=== PATIENT | male | born 1970 | race Caucasian/White ===

== ENCOUNTER → 2021-01-06 | Outpatient (CLI) | payer BC | LOC: LABNPT 09:31 | PROVIDERS: ATTEND Family Medicine | DX: U07.1 COVID-19 (principal) | CPT/HCPCS: 87635 ==

== ENCOUNTER 2022-05-24 18:52 | Emergency (ER) | payer OTHER ==
[~2022-05-24] VITALS: Ht 180.3 cm; Wt 95.3 kg
--- NOTE | 2022-05-24 19:11 | ED Abdominal Pain ---
General Chief Complaint: Foreign Body Stated Complaint: STOMACH PAIN History of Present Illness Date Seen by Provider: May 24, 2022 Time Seen by Provider: 19:05 Initial Comments 51-year-old male presents for abdominal discomfort. He reports earlier tonight he was eating salmon and rice when he felt that the food was stuck and he had trouble swallowing. No vomiting or belching. Since then he has been able to handle saliva, he has not tried eating or drinking anything. After the rice passed, he had epigastric pain. He has similar episodes, when eating fast or larger bites, approximately every 1-2 months. He had an EGD in 2007, has not required medical care for this problem since. No colonoscopy. Pain has improved, since the initial symptoms. Timing/Duration: 1 Hour Severity/Quality: Mild Location: Epigastric Radiation: No Radiation Associated Symptoms: Denies Symptoms (LOU OLSON) Allergies and Home Medications Allergies Coded Allergies: Penicillins (Verified Allergy, Unknown, 05/24/22) Patient Home Medication List Home Medication List Reviewed: Yes (LOU OLSON) Pantoprazole Sodium (Protonix) 40 Mg Tablet., 40 MG PO DAILY Prescribed by: LOU OLSON on 05/24/221915 Review of Systems Review of Systems Constitutional: no symptoms reported, see HPI Gastrointestinal: See HPI; Denies Abdomen Distended; Abdominal Pain; Denies Diarrhea, Denies Nausea, Denies Vomiting (LOU OLSON) All Other Systems Reviewed Negative Unless Noted: Yes (LOU OLSON) Past Lyhnwpj-Iwmxmu-Cdfyka Hx Family Medical History Reviewed Nursing Family Hx (LOU OLSON) Physical Exam Vital Signs Vital Signs - First Documented 05/24/22 19:04 Temp 36.1 Pulse 85 Resp 16 B/P (MAP) 159/97 (117) Pulse Ox 98 O2 Delivery Room Air (ADRI KHAN MD) Vital Signs Capillary Refill : (LOU OLSON) Height/Weight/BMI Height: '" Weight: lbs. oz. kg; BMI Method: General Appearance: WD/WN, mild distress (anxious) Respiratory: chest non-tender, lungs clear, normal breath sounds Cardiovascular: normal peripheral pulses, regular rate, rhythm Gastrointestinal: normal bowel sounds, soft; No distended, No rebound; tenderness (trace epigastric ) Neurologic/Psychiatric: no motor/sensory deficits, alert, normal mood/affect, oriented x 3 Skin: normal color, warm/dry (LOU OLSON) Progress/Results/Core Measures Results/Orders Medications Given in ED Current Medications Medications Dose Ordered Sig/Gayle Route Start Time Stop Time Status Last Admin Dose Admin Al Hydrox/Mg Hydrox/Simethicone 30 ml ONCE ONCE PO 05/24/22 19:15 05/24/22 19:16 DC 05/24/22 19:11 30 ML Lidocaine HCl 15 ml ONCE ONCE PO 05/24/22 19:15 05/24/22 19:16 DC 05/24/22 19:11 15 ML (ADRI KHAN MD) Vital Signs/I&O 05/24/22 05/24/22 19:04 19:34 Temp 36.1 36.1 Pulse 85 87 Resp 16 16 B/P (MAP) 159/97 (117) 164/97 Pulse Ox 98 99 O2 Delivery Room Air Room Air (ADRI KHAN MD) Progress Progress Note : Time: 19:05 Progress Note Patient seen and evaluated, will give water to assure he can swallow. And then a GI cocktail and reevaluate. 1929 symptoms improved after GI cocktail, with mild residual symptoms. Discharge instructions and return precautions reviewed with the patient. All questions answered. (LOU OLSON) Departure Impression Primary Impression: Epigastric abdominal pain Additional Impression: Dysphagia Qualified Codes: R13.10 - Dysphagia, unspecified Disposition: 01 HOME, SELF-CARE Condition: Improved Departure-Patient Inst. Decision time for Depature: 19:20 (LOU OLSON) Referrals: DL NATION MD (PCP) Primary Care Physician Patient Instructions: Dysphagia (DC), Eosinophilic Esophagitis Add. Discharge Instructions: See Dr. Nation for referral to general surgeon for Colonoscopy and EGD. Take Protonix for 2 weeks. Eat small bites of food, drink water before eating and after 1-2 bites. Avoid foods that cause GI problems. Try a hard peppermint after having similar symptoms. You can spray Flonase 2 squirts in the back of your throat daily for 2 weeks, and then as needed when symptoms occur. Return to Emergency Dept for new, urgent healthcare needs. All discharge instructions reviewed with patient and/or family. Voiced unde rstanding. Scripts Pantoprazole Sodium (Protonix) 40 Mg Tablet. 40 MG PO DAILY for 14 Days, #14 TAB 0 Refills Prov: LOU OLSON 05/24/22 ATTENDING PHYSICIAN NOTE: I was physically present as attending physician in the emergency department during the care of this patient, but I was not directly involved in the decision making or delivery of care for this patient. (ADRI KHAN MD) Copy Copies To 1: DL NATION MD, AMY ARNP May 24, 2022 19:11 ADRI KHAN MD May 25, 2022 04:57
[2022-05-24] MEDS ORDERED: ANTACID SUSP 30 ML UDC (MYLANTA) PO ONE (19:15)
[2022-05-24] MEDS ORDERED: LIDOCAINE 2% VISCOUS 15 ML UDC PO ONE (19:15)
[2022-05-24] MEDS ORDERED: PANT40TA2 PO (19:16)
[2022-05-24] MEDS ORDERED: PANTOPRAZOLE 40 MG (PROTONIX) TAB PO STA (19:30)
[2022-05-24 19:34] VITALS: BP 164/97
== END 2022-05-24 19:35 | disposition home or self-care (01) ==
LOC: EDUNIT# 18:52 → ER 18:55
DX: R10.13 Epigastric pain (principal); R13.10 Dysphagia, unspecified
CPT/HCPCS: 99283

== ENCOUNTER 2022-07-19 05:39 | Outpatient (CLI) | payer OTHER ==
[~2022-07-19] VITALS: Ht 180.3 cm; Wt 99.8 kg
[~2022-07-19 05:39] MED LIST: PANT40TA2 PO
== END 2022-07-19 08:52 | disposition home or self-care (01) ==
LOC: PREOP 05:39
PROVIDERS: ATTEND Surgery
DX: Z01.818 Encounter for other preprocedural examination (principal)

== ENCOUNTER 2022-07-27 07:46 | Day surgery (SDC) | payer OTHER ==
[~2022-07-27] VITALS: Ht 180 cm; Wt 99.8 kg
[2022-07-27] MEDS ORDERED: LACTATED RINGERS 1,000 ML IV STA (07:49)
[2022-07-27 08:00] VITALS: BP 155/86
[2022-07-27] MEDS ORDERED: HURRICAINE EXT TUBE (BENZOCAINE) XX PRN (08:00)
--- NOTE | 2022-07-27 08:52 | Progress Note-Pre Operative ---
Pre-Operative Progress Note Date of Available H&P: Jun 27, 2022 Date H&P Reviewed: Jul 27, 2022 Time H&P Reviewed: 08:43 History & Physical: H&P Reviewed, Patient Examed, No changes noted Pre-Operative Diagnosis: Dysphagia, screening colonoscopy SAIRA SANDOVAL DO Jul 27, 2022 08:52
[2022-07-27] MEDS ORDERED: HURRICAINE EXT TUBE (BENZOCAINE) ONE (09:23)
[2022-07-27] MEDS ORDERED: MIDAZOLAM 2 MG/2 ML (VERSED) VIAL ONE (09:38)
[2022-07-27] MEDS ORDERED: PROPOFOL INJECTION 50 ML IV ONE ×2 (09:38→09:58)
[2022-07-27 10:15] VITALS: BP 134/78
--- NOTE | 2022-07-27 10:19 | Progress Note-Post Operative ---
Post-Operative Progess Note Surgeon (s)/Hunting And Fishing Guide (s) Surgeon SAIRA SANDOVAL DO Hunting And Fishing Guide: Chance Leon, MSIII Pre-Operative Diagnosis Dysphagia, screening colonoscopy Post-Operative Diagnosis Duodenitis Gastritis with bleed Hiatal hernia - sliding Int hemorrhoids Procedure & Operative Findings Date of Procedure 07/27/22 Procedure Performed/Findings EGD with bx Colonoscopy PROCEDURE NOTE: After informed consent was obtained, the patient was brought to the endoscopy suite, placed in bed in left lateral decubitus position. He was administered IV sedation by the SENIOR HARDWARE ENGINEER who then monitored vitals the entire time, heart rate, blood pressure and pulse ox and the scope was inserted down the mouth through the esophagus into the stomach. On the way down, noted some mild esophagitis, took a picture, pushed into the stomach, pushed past the antrum into the duodenum. Duodenum appeared to be inflamed but no ulcer seen. Pulled back and did a biopsy of the antrum and then retroflexed the scope. I saw some blood, so he had gastritis with bleeding and I saw sliding hiatal hernia (probably 1cm), took a picture of this and then pulled the scope into the GE junction, took another picture of the hiatal hernia and then did a biopsy of the GE junction. Pushed the scope back into the stomach, suctioned all the air out of the stomach. At this point pulled the scope up the esophagus and out the mouth. Switched camera, switched gloves, went down below and started the colonoscopy. Pushed all the way into about 150 cm to get all the way to cecum; but was able to reduce the excess to 90cm and stay in cecum. I, took a picture of the appendiceal orifice, noted the ileocecal valve and then slowly withdrew the scope, insufflating to look circumferentially at the tovar looking the cecum, up the ascending colon to the hepatic flexure, then down the transverse colon, splenic flexure, into the descending colon, down into the sigmoid and finally into the rectum, retroflexed in the rectal vault, saw some minimal internal hemorrhoids and took a picture of this. The patient tolerated the procedure and he recovered in the endoscopy suite. Recommended for repeat colonoscopy in 10 years Anesthesia Type IV sedation by SENIOR HARDWARE ENGINEER Estimated Blood Loss Estimated blood loss (mL): scant Specimens/Packing Specimens Removed antral bx duodenal bx body of stomach bx GE jxn bx SAIRA SANODVAL DO Jul 27, 2022 10:19
[2022-07-27 10:20] VITALS: BP 132/71
--- NOTE | 2022-07-27 10:20 | Endoscopy Discharge Instruct ---
Endo Procedure/Findings Findings 1.: Gastritis 2.: Other Findings (duodenitis) 3.: Hiatal Hernia 4.: Internal Hemorrhoids Discharge Instructions - Activity: You might feel a little sleepy until tomorrow. This is due to the medicine you received to relax you. Until tomorrow, you should: NOT drive a car, operate machinery or power tools. NOT drink any alcoholic beverages. NOT make any important decisions or sign importortant papers. Do not return to work until tomorrow, unless otherwise instructed. Resume previous activities tomorrow. Diet: Start by taking liquids. If you tolerate liquids, advance to solid food. 1.: EGD in 1 year 2.: Colonscopy in 10 years Notify Physician - If you experience excessive bleeding, unusual abdominal pain, fever, or chest pain, contact your doctor immediately. SAIRA SANDOVAL DO Jul 27, 2022 10:20
[2022-07-27 10:25] VITALS: BP 121/64
[2022-07-27 10:30] VITALS: BP 121/64
[2022-07-27 11:00] VITALS: BP 121/64
--- NOTE | 2022-07-27 11:51 | Anesthesia-General Post-Op ---
MAC Patient Condition Mental Status/LOC: Same as Preop Cardiovascular: Satisfactory Nausea/Vomiting: Absent Respiratory: Satisfactory Pain: Controlled Complications: Absent Post Op Complications Complications None Follow Up Care/Instructions Patient Instructions None needed. Anesthesiology Discharge Order Discharge Order Patient is doing well, no complaints, stable vital signs, no apparent adverse anesthesia problems. No complications reported per nursing. IGNACIA HAWLEY CRNA Jul 27, 2022 11:51
== END 2022-07-27 11:10 | disposition home or self-care (01) ==
LOC: ENDO 07:46
PROVIDERS: ATTEND Surgery
DX: Z12.11 Encounter for screening for malignant neoplasm of colon (principal); K21.00 Gastro-esophageal reflux disease with esophagitis, without bleeding; K31.89 Other diseases of stomach and duodenum; K29.80 Duodenitis without bleeding; K44.0 Diaphragmatic hernia with obstruction, without gangrene; K64.8 Other hemorrhoids; E66.9 Obesity, unspecified; Z68.31 Body mass index [BMI] 31.0-31.9, adult; K29.71 Gastritis, unspecified, with bleeding
CPT/HCPCS: 88305